=== PATIENT | male | born 1965 | race Caucasian/White ===

== ENCOUNTER 2019-07-29 15:33 | Emergency (ER) | payer OTHER ==
[~2019-07-29] VITALS: Ht 180.3 cm; Wt 102.1 kg
--- OUTSIDE RECORDS SUMMARY | ~2019-07-29 | XMS | Clinical Summary ---
Demographics + + + | Address | [address] | | | [place] [address] | + + + | Home Phone | | + + + | Preferred Language | Unknown | + + + | Marital Status | | + + + | Druze Affiliation | Unknown | + + + | Race | Unknown | + + + | Ethnic Group | Unknown | + + + Author + + + | Author | [facility] | | | and [place] | + + + | Organization | [facility] | | | and [place] | + + + | Address | Unknown | + + + | Phone | Unavailable | + + + Support + + +---------+ + | Name | Relationship | Address | Phone | + + +---------+ + | Nori Swift | ECON | Unknown | | + + +---------+ + Care Team Providers + +------+ + | Care Inbound Sales Representative Name | Role | Phone | + +------+ + | Sheri Woodard MD | PCP | | + +------+ + Allergies No Known Allergies Medications + + + +---------+------+------+-------+ | Medication | Sig | Dispensed | Refills | Star | End | Statu | | | | | | t | Date | s | | | | | | Date | | | + + + +---------+------+------+-------+ | levothyroxine | TAKE 1 TABLET BY | | 1 | 08/2 | | Activ | | (SYNTHROID) 175 mcg | MOUTH ONCE DAILY IN | | | 0/20 | | e | | tablet | THE MORNING ON AN | | | 19 | | | | | EMPTY STOMACH | | | | | | + + + +---------+------+------+-------+ | | Take 1 tablet by | 20 | 1 | 11/0 | | Activ | | amoxicillin-clavulan | mouth 2 times daily. | tablet | | 8/20 | | e | | ate (AUGMENTIN) | | | | 19 | | | | 875-125 mg per | | | | | | | | tablet | | | | | | | + + + +---------+------+------+-------+ | diclofenac | diclofenac 1 % | | 0 | | | Activ | | (VOLTAREN) 1% GEL | topical gel | | | | | e | + + + +---------+------+------+-------+ | meloxicam (MOBIC) | meloxicam 7.5 mg | | 0 | | | Activ | | 7.5 mg tablet | tablet | | | | | e | + + + +---------+------+------+-------+ | | oxycodone-acetaminop | | 0 | | | Activ | | oxyCODONE-acetaminop | hen 7.5 mg-325 mg | | | | | e | | hen (PERCOCET) | tablet take 1 to 2 | | | | | | | 7.5-325 mg per | tablets by mouth | | | | | | | tablet | every 4 hours if | | | | | | | | needed for pain | | | | | | + + + +---------+------+------+-------+ | ramipril (ALTACE) | ramipril 2.5 mg | | 0 | | | Activ | | 2.5 mg capsule | capsule | | | | | e | + + + +---------+------+------+-------+ | tadalafil (CIALIS) | Cialis 5 mg tablet | | 0 | | | Activ | | 5 MG tablet | TAKE ONE TABLET BY | | | | | e | | | MOUTH EVERY DAY FOR | | | | | | | | BPH AND ED | | | | | | + + + +---------+------+------+-------+ Active Problems + + + | Problem | Noted Date | + + + | Benign prostatic hyperplasia with urinary frequency | 05/23/2019 | + + + Encounters +--------+ + + + + | Date | Type | Specialty | Care Team | Description | +--------+ + + + + | 05/30/ | Telephone | Urology | Mercy Burns | Other | | 2020 | | | JOSEPH Parekh | | +--------+ + + + + | 05/22/ | Office | Urology | Kev Mckenna, | Benign prostatic | | 2019 | Visit | | DO | hyperplasia with | | | | | | urinary frequency | +--------+ + + + + from Last 3 Months Immunizations + + + + | Name | Administration Dates | Next Due | + + + + | HEP A/HEP B, 3 DOSE | 03/28/2015 | | | (ADULT) | | | + + + + | INFLUENZA 63 Y OR >, | 11/30/2013 | | | TRIVALENT HIGH-DOSE | | | + + + + | INFLUENZA PF | 12/16/2018 | | | QUAD(PED/ADOL/ADULT) | | | | ,PSKT or VIAL | | | + + + + | INFLUENZA PF | 11/30/2013, 02/08/2012 | | | TRIVALENT(PED/ADOL/A | | | | DULT), PSKT | | | + + + + | INFLUENZA QUADR | 12/07/2017 | | | W/PRES | | | | (PED/ADOL/ADULT) | | | | MULTIDOSE | | | + + + + | INFLUENZA TRIV | 12/25/2016, 12/25/2015, 01/23/2013, | | | W/PRES(PED/ADOL/ADUL | 12/02/2010 | | | T),MULTIDOSE | | | + + + + | INFLUENZA, | 01/23/2013 | | | UNSPECIFIED | | | | FORMULATION | | | + + + + | PNEUMOCOCCAL | 01/23/2013 | | | POLYSACCHARIDE | | | | 23-VALENT (PPSV23) | | | + + + + | PNEUMOCOCCAL, | 01/23/2013 | | | UNSPECIFIED | | | | FORMULATION | | | + + + + | TDAP, (ADOL/ADULT) | 02/15/2019 | | + + + + Social History + +-------+ +--------+------+ | Tobacco Use | Types | Packs/Day | Years | Date | | | | | Used | | + +-------+ +--------+------+ | Light Tobacco Smoker | | | | | + +-------+ +--------+------+ + +---+---+---+ | Smokeless Tobacco: | | | | | Never Used | | | | + +---+---+---+ + + + | Sex Assigned at | Date Recorded | | | | + + + | Not on file | | + + + + + + + | Job Start Date | Occupation | Industry | + + + + | Not on file | Not on file | Not on file | + + + + + + + + | Travel History | Travel Start | Travel End | + + + + + + | No recent travel history available. | + + Last Filed Vital Signs + + + + + | Vital Sign | Reading | Time Taken | Comments | + + + + + | Blood Pressure | 130/82 | 05/23/2019 8:26 AM | | | | | PDT | | + + + + + | Pulse | 60 | 05/23/2019 8:26 AM | | | | | PDT | | + + + + + | Temperature | 36.6 C (97.9 F) | 05/23/2019 8:26 AM | | | | | PDT | | + + + + + | Respiratory Rate | 18 | 01/13/2019 8:40 AM | | | | | PST | | + + + + + | Oxygen Saturation | 96% | 05/23/2019 8:26 AM | | | | | PDT | | + + + + + | Inhaled Oxygen | - | - | | | Concentration | | | | + + + + + | Weight | 105.7 kg (233 lb) | 05/23/2019 8:26 AM | | | | | PDT | | + + + + + | Height | - | - | | + + + + + | Body Mass Index | - | - | | + + + + + Plan of Treatment +--------+ + + + + | Date | Type | Specialty | Care Team | Description | +--------+ + + + + | 09/04/ | Procedure | Urology | Kev Mckenna, | | | 2019 | visit | | DO [address] | | | | | | [facility] [address] | | | | | | [phone] | | | | | | | | +--------+ + + + + + + + + + | Health Maintenance | Due Date | Last Done | Comments | + + + + + | Hepatitis C | | | | | Screening | 4 | | | + + + + + | Vaccine: | | 01/23/2013, 01/23/2013 | | | Pneumococcal 19-64 | 0 | | | | (1 of 1 - PPSV23) | | | | + + + + + | Colorectal Cancer | | | | | Screening | 4 | | | | (Colonoscopy) | | | | + + + + + | Vaccine: Zoster (1 | | | | | of 2) | 4 | | | + + + + + | Vaccine: | | 02/15/2019 | | | Dtap/Tdap/Td (2 - | 9 | | | | Td) | | | | + + + + + | Vaccine: Influenza | Completed | 12/16/2018, 12/07/2017, | | | | | 12/25/2016, Additional history | | | | | exists | | + + + + + Results Not on filefrom Last 3 Months Insurance +-------+--------+ +--------+ + +------+ | Payer | Benefi | Subscriber | Effect | Phone | Address | Type | | | t Plan | ID | pb | | | | | | / | | Dates | | | | | | Group | | | | | | +-------+--------+ +--------+ + +------+ | MODA | MODA | [id number] | 03/03/ | [phone] | [address] | PPO | | | COMMUN | | 2019-P | [phone] | | | | [place] | | resent | | [place], | | | | CARE | | | | [place] [address] | | | | NETWOR | | | | | | | | K | | | | | | +-------+--------+ +--------+ + +------+ | MODA | MODA | [id number] | | [phone] | [address] | PPO | | | [place] | | [phone] | [phone] | | | | [place] | | esent | | [place], | | | | [place] | | | | [place] [address] | | +-------+--------+ +--------+ + +------+ + +--------+ +--------+ + + | Guarantor Name | Accoun | Relation to | Date | Phone | Billing Address | | | t Type | Patient | of | | | | | | | | | | + +--------+ +--------+ + + | Dmitri Swift | Person | Self | [birth year] | [address] | | | al/Fam | | 1966 | [phone] | [place] [address] | | | raul | | | 2 (Home) | | + +--------+ +--------+ + + | Dmitri Swift | Person | Self | [birth year] | [address] | | | al/Fam | | 1966 | [phone] | [place] [address] | | | raul | | | 2 (Home) | | + +--------+ +--------+ + + Advance Directives + + + + + | Type | Date Recorded | Patient | Explanation | | | | Trim Crew Supervisor | | + + + + + | Power of | | | | | Director Of Field Sales | | | | + + + + + | Advance | | | | | Directive | | | | + + + + +"
--- OUTSIDE RECORDS SUMMARY | ~2019-07-29 | XMS | Encounter Summary ---
Demographics + + + | Address | [address] | | | [place] [address] | + + + | Home Phone | | + + + | Preferred Language | Unknown | + + + | Marital Status | | + + + | Restorationist Affiliation | Unknown | + + + | Race | Unknown | + + + | Ethnic Group | Unknown | + + + Author + + + | Author | [facility] | | | and [place] | + + + | Organization | [facility] | | | and [...] Team Providers + +------+ + | Care Active Directory Systems Administrator Name | Role | Phone | + +------+ + | No, Physician | PCP | Unavailable | + +------+ + Reason for Visit Diagnostic/Screening (Emergency) +--------+--------+ + + + + | Status | Reason | Specialty | Diagnoses / | Referred By | Referred To | | | | | Procedures | Contact | Contact | +--------+--------+ + + + + | Closed | | Radiology | Diagnoses | | [address] | | | | | Acute left | Nas | [address] [place] | | | | | flank pain | Bjorn | [place], | | | | | Microscopic | [place] | [place] [address] | | | | | hematuria | [address] | Phone: | | | | | Procedures | [address] | [phone] | | | | | CT Renal | [place] | Fax: | | | | | [place] | [address] | [phone] | | | | | Contrast | Phone: | | | | | | | [phone] | | | | | | | Fax: | | | | | | | [phone] | | +--------+--------+ + + + + Encounter Details +--------+ + + + + | Date | Type | Department | Care Team | Description | +--------+ + + + + | 01/13/ | Hospital [facility] | Nas, | | | 2019 | Encounter | [facility] [address] | Bjorn Cohen MD | | | | | [place], | [address] | | | | | [place] [address] | [place] | | | | | [phone] | [address] | | | | | | | | +--------+ + + + + Social History + [...] recent travel history available. | + + documented as of this encounter Medications at Time of Discharge + + + +---------+ + + | Medication | Sig | Dispensed | Refills | Start | End Date | | | | | | Date | | + + + +---------+ + + | | Take 1 tablet by | 20 | 1 | 01/14/20 | | | amoxicillin-clavulan | mouth 2 times daily. | tablet | | 19 | | | ate (AUGMENTIN) | | | | | | | 875-125 mg per | | | | | | | tablet | | | | | | + + + +---------+ + + | levothyroxine | TAKE 1 TABLET BY | | 1 | 10/26/19 | | | (SYNTHROID) 175 mcg | MOUTH ONCE DAILY IN | | | 19 | | | tablet | THE MORNING ON AN | | | | | | | EMPTY STOMACH | | | | | + + + +---------+ + + | tamsulosin | Take 1 capsule by | 15 | 0 | 01/14/20 | | | (FLOMAX) 0.4 mg CAPS | mouth Daily. | capsule | | 19 | 0 | + + + +---------+ + + | traMADol (ULTRAM) | Take 1 tablet by | 12 | 0 | 01/14/20 | | | 50 mg tablet | mouth every 8 hours | tablet | | 19 | 9 | | | as needed for up to | | | | | | | 3 days. | | | | | + + + +---------+ + + documented as of this encounter Plan of Treatment +--------+ + + + + | Date | Type | Specialty | Care Team | Description | +--------+ + + + + | 09/04/ | Procedure | Urology | Kev Mckenna, | | | 2019 | visit | | DO [address] | | | | | | [place] [address] | | | | | | [phone] | | | | | | | | +--------+ + + + + documented as of this encounter Procedures + +--------+ + + + | Procedure Name | Priori | Date/Time | Associated Diagnosis | Comments | | | ty | | | | + +--------+ + + + | CT RENAL [place] | STAT | 01/13/2019 | Acute left flank | Results for this | | CONTRAST | | 11:18 AM | pain Microscopic | procedure are in the | | | | PST | hematuria | results section. | + +--------+ + + + documented in this encounter Results CT Renal [place] Contrast (01/13/2019 11:18 AM PST) + + | Specimen | + + | | + + + + + | Impressions | Performed At | + + + | Uncomplicated descending colon diverticulitis. Left | [facility] | | nephrolithiasis without evidence of obstructive uropathy. | | | Posterior right hepatic lobe heterogeneously hypoechoic lesion. | | | Multiple additional smaller hypoechoic lesions are also noted. | | | Recommend routine follow-up liver protocol MRI versus CT for further | | | characterization. Hepatic steatosis. Notification: | | | Discussed with Dr. Lovell at 1147 on 01/13/2019. Dictated and | | | Signed by: Kev Hadley MD Electronically signed: 01/13/2019 | | | 11:50 AM | | + + + + + + | Narrative | Performed At | + + + | TECHNIQUE: Noncontrast axial CT imaging was obtained through the | [facility] | | abdomen and pelvis with coronal and sagittal reformats. CLINICAL | | | INFORMATION: Flank pain, kidney stone suspected COMPARISON: None | | | available. FINDINGS: LUNGS: Bases are clear. BONES: No | | | acute osseous abnormality. No osteoblastic or osteolytic lesion. | | | ABDOMEN/PELVIS: Abdominal wall: Small fat-containing right inguinal | | | hernia. Questionable small left inguinal hernia. No inguinal | | | lymphadenopathy. Liver: Scattered hypoattenuating subcentimeter | | | lesions in the left hepatic lobe measuring up to 9 mm, too small to | | | fully characterize. Posterior inferior left hepatic lobe | | | hypoattenuating 10 mm lesion with density most compatible with a | | | cyst. Diffuse low-attenuation of the liver. There is a mildly | | | heterogeneous hypoattenuating structure at the posterior right | | | hepatic lobe measuring 2.4 x 3.7 cm. Bile ducts: No intrahepatic | | | dilatation. Gallbladder: No calcified gallstones. Normal caliber | | | wall. Pancreas: No mass or ductal dilatation. Spleen: Unremarkable. | | | Adrenals: No nodule. Kidneys: Nonobstructing 4 mm left midpole | | | calyceal calculus. Punctate left upper pole calculus. No | | | hydronephrosis. No contour abnormality to suggest a mass lesion. | | | Ureters: No hydroureter or calculus. Urinary Bladder: No wall | | | thickening or calculus. Reproductive organs: No pelvic mass. | | | Bowel: Multiple left colon diverticula with circumferential colonic | | | wall thickening at the mid descending colon, demonstrating mild | | | surrounding fat stranding. No abnormal fluid collection or evidence | | | to suggest perforation. The involved segment measures approximately | | | 6.3 cm. Normal appendix. No evidence of obstruction. | | | Peritoneum/retroperitoneum: No lymphadenopathy, free air, or free | | | fluid. Vessels: Normal caliber of the abdominal aorta. | | + + + + + | Procedure Note | + + | Rakesh, Rad Results In - 01/13/2019 11:53 AM PST | | TECHNIQUE: Noncontrast axial CT imaging was obtained through the abdomen and | | pelvis with coronal and sagittal reformats. | | | | CLINICAL INFORMATION: Flank pain, kidney stone suspected | | | | COMPARISON: None available. | | | | FINDINGS: | | | | LUNGS: Bases are clear. | | | | BONES: No acute osseous abnormality. No osteoblastic or osteolytic lesion. | | | | ABDOMEN/PELVIS: | | Abdominal wall: Small fat-containing right inguinal hernia. Questionable small | | left inguinal hernia. No inguinal lymphadenopathy. | | | | Liver: Scattered hypoattenuating subcentimeter lesions in the left hepatic lobe | | measuring up to 9 mm, too small to fully characterize. Posterior inferior left | | hepatic lobe hypoattenuating 10 mm lesion with density most compatible with a | | cyst. Diffuse low-attenuation of the liver. There is a mildly heterogeneous | | hypoattenuating structure at the posterior right hepatic lobe measuring 2.4 x | | 3.7 cm. | | Bile ducts: No intrahepatic dilatation. | | Gallbladder: No calcified gallstones. Normal caliber wall. | | Pancreas: No mass or ductal dilatation. | | Spleen: Unremarkable. | | | | Adrenals: No nodule. | | Kidneys: Nonobstructing 4 mm left midpole calyceal calculus. Punctate left upper | | pole calculus. No hydronephrosis. No contour abnormality to suggest a mass | | lesion. | | Ureters: No hydroureter or calculus. | | Urinary Bladder: No wall thickening or calculus. | | Reproductive organs: No pelvic mass. | | | | Bowel: Multiple left colon diverticula with circumferential colonic wall | | thickening at the mid descending colon, demonstrating mild surrounding fat | | stranding. No abnormal fluid collection or evidence to suggest perforation. The | | involved segment measures approximately 6.3 cm. Normal appendix. No evidence of | | obstruction. | | Peritoneum/retroperitoneum: No lymphadenopathy, free air, or free fluid. | | Vessels: Normal caliber of the abdominal aorta. | | | | | | IMPRESSION: | | | | Uncomplicated descending colon diverticulitis. | | | | Left nephrolithiasis without evidence of obstructive uropathy. | | | | Posterior right hepatic lobe heterogeneously hypoechoic lesion. Multiple | | additional smaller hypoechoic lesions are also noted. Recommend routine | | follow-up liver protocol MRI versus CT for further characterization. | | | | Hepatic steatosis. | | | | | | Notification: Discussed with Dr. Lovell at 1147 on 01/13/2019. | | | | Dictated and Signed by: Kev Hadley MD | | Electronically signed: 01/13/2019 11:50 AM | + + + +---------+ + + | Performing | Address | City[facility] | Phone Number | | Organization | | | | + +---------+ + + | [facility] | | | | + +---------+ + + documented in this encounter Visit Diagnoses Not on filedocumented in this encounter"
--- OUTSIDE RECORDS SUMMARY | ~2019-07-29 | XMS | Encounter Summary ---
Demographics + + + | Address | [address] | | | [place] [address] | + + + | Home Phone | | + + + | Preferred Language | Unknown | + + + | Marital Status | | + + + | Hoahaoism Affiliation | Unknown | + + + | Race | Unknown | + + + | Ethnic Group | Unknown | + + + Author + + + | Author | [facility] | | | and [place] | + + + | Organization | [facility] | | | and [place] | [...] Team Providers + +------+ + | Care Foreign Legal Consultant Name | Role | Phone | + +------+ + | Sheri Woodard MD | PCP | | + +------+ + Reason for Visit + + + | Reason | Comments | + + + | Establish Care | | + + + Evaluate & Treat (Routine) + +--------+ + + + + | Status | Reason | Specialty | Diagnoses / | Referred By | Referred To | | | | | Procedures | Contact | Contact | + +--------+ + + + + | Authorized | | Urology | Diagnoses | Yamilet, | [facility] | | | | | Calculus of | Sheri Matos, | [address] | | | | | kidney | MD [address] | | | | | Benign | [address] | [place], [place] | | | | | prostatic | [place], | [address] | | | | | hyperplasia | [place] | Phone: | | | | | with lower | [address] | [phone] | | | | | urinary | Phone: | Fax: | | | | | tract | [phone] | [phone] | | | | | symptoms | Fax: | | | | | | | [phone] | | + +--------+ + + + + Encounter Details +--------+---------+ + + + | Date | Type | Department | Care Team | Description | +--------+---------+ + + + | 05/22/ | Office | [facility] | Kev Mckenna, | Benign prostatic | | 2020 | Visit | UROLOGY [address] | DO [address] | hyperplasia with | | | | [address] | [place] [address] | urinary frequency | | | | [place], [place] | [phone] | | | | | [address] | | | | | | [phone] | | | +--------+---------+ + + + Social History + +-------+ [...] + + documented as of this encounter Last Filed Vital Signs + + + [...] + + + | Respiratory Rate | - | - | | + [...] | | + + + + + documented in this encounter Patient Instructions Patient Instructions Rox Oconnor, Cmm Technician - 05/23/2019 8:30 AM PDTFormatt ing of this note might be different from the original. 1. Bladder Irritants - In addition, plan to work through a list of common bladder irritants Will Avoiding these Help? #1. Pick one food at a time. #2. Cut it out of your Diet completely. #3 Give it at least 10-14 days to have an effects. #4.If not better, try another. #5. If is better, than you choose whether the improvement out weigh how much you miss the f ood.Will Avoiding these Help? 2. Fiber buds (found in the cereal aisle of the grocery store) - In the meantime, plan to s tart on fiber supplements, such as All Bran Fiber bud. 3. Cystoscopy Cystoscopy is a procedure that lets your doctor look directly inside your urethra and bladd er. It can be used to: Help diagnose a problem with your urethra, bladder, or kidneys. Take a sample (biopsy) of bladder or urethral tissue. Treat certain problems (such as removing kidney stones). Place a stent to bypass an obstruction. Take special X-rays of the kidneys. Based on the findings, your doctor may recommend other tests or treatments. What is a cystoscope? A cystoscope is a telescope-like instrument that contains lenses and fiberoptics (small gla ss wires that make bright light). The cystoscope may be straight and rigid, or flexible to b end around curves in the urethra. The doctor may look directly into the cystoscope, or proje ct the image onto a monitor. Getting ready Ask your doctor if you should stop taking any medicines before the procedure. Ask whether you should avoid eating or drinking anything after midnight before the proce dure. Follow any other instructions your doctor gives you. Tell yourdoctor before the exam if you: Take any medicines, such as aspirin or blood thinners Have allergies to any medicines Are The procedure Cystoscopy is done in the doctor s office, surgery center, or hospital. The doctor and a nurse are present during the procedure. It takes only a few minutes, longer if a biopsy, X-r ay, or treatment needs to be done. During the procedure: You lie on an exam table on your back, knees bent and legs apart. You are covered with a drape. Your urethra and the area around it are washed. Anesthetic jelly may be applied to numb the urethra. Other pain medicine is usually not needed. In some cases, you may be offered a mild sedative to help you relax. If a more extensive procedure is to be done, such as a biop sy or kidney stone removal, general anesthesia may be needed. The cystoscope is inserted. A sterile fluid is put into the bladder to expand it. You ma y feel pressure from this fluid. When the procedure is done, the cystoscope is removed. After the procedure If you had a sedative, general anesthesia, or spinal anesthesia, you must have someone driv e you home. Once you re home: Drink plenty of fluids. You may have burning or light bleeding when you urinate this is normal. Medicines may be prescribed to ease any discomfort or prevent infection. Take these as d irected. Call your doctor if you have heavy bleeding or blood clots, burning that lasts more than a day, a fever [id number] (38 C), or trouble urinating. Date Last Reviewed: 03/08/201619996953-1054 [employer]. [address] [place] [address]. [address] [facility] ts reserved. This information is not intended as a substitute for professional medical care. Always follow your healthcare professional's instructions. documented in this encounter Progress Notes Kev Mckenna DO - 05/23/2019 8:30 AM PDTFormatting of this note might be different fr om the original. [facility] Urology Primary Care Provider: Sheri Woodard MD History Obtained From: the patient Primary Care Physician: Sheri Woodard MD CHIEF COMPLAINT: Establishing Care for BPH, overactive bladder Chief Complaint Patient presents with Establish Care HISTORY OF PRESENT ILLNESS INTERVAL: 05/23/2019 Dr Kev Mckenna DO The patient is a 53 y.o. male with significant past medical history below who presents for LUTS. He notes urgency, frequency, variably weak stream, intermittency, terminal dribble, double voiding. He denies GH, UTI, AUR. He was treated for prostatitis but stopped the therapy on his own. He had a stone years ago. He tried Flomax but did not like the side effects and retrograde ejaculation. He was told his prostate was enlarged 12 years ago. He denies cons tipation. He occasionally smokes socially. He denies family Hx of malignancy. History: No past medical history on file. No past surgical history on file. No family history on file. Social History Socioeconomic History Marital status: Spouse name: Not on file Number of children: Not on file Years of education: Not on file Highest education level: Not on file Tobacco Use Smoking status: Light Tobacco Smoker Smokeless tobacco: Never Used Allergies: No Known Allergies Medications: Current Outpatient Medications Medication Sig Dispense Refill amoxicillin-clavulanate (AUGMENTIN) 875-125 mg per tablet Take 1 tablet by mouth 2 time s daily. 20 tablet 1 diclofenac (VOLTAREN) 1% GEL diclofenac 1 % topical gel levothyroxine (SYNTHROID) 175 mcg tablet TAKE 1 TABLET BY MOUTH ONCE DAILY IN [facility] ON AN EMPTY STOMACH 1 meloxicam (MOBIC) 7.5 mg tablet meloxicam 7.5 mg tablet oxyCODONE-acetaminophen (PERCOCET) 7.5-325 mg per tablet oxycodone-acetaminophen 7.5 mg -325 mg tablet take 1 to 2 tablets by mouth every 4 hours if needed for pain ramipril (ALTACE) 2.5 mg capsule ramipril 2.5 mg capsule tadalafil (CIALIS) 5 MG tablet Cialis 5 mg tablet TAKE ONE TABLET BY MOUTH EVERY DAY FOR BPH AND ED No current facility-administered medications for this visit. REVIEW OF SYSTEMS Review of Systems Constitutional: Negative for chills, fever and weight loss. Eyes: Negative for blurred vision. Respiratory: Negative for shortness of breath. Cardiovascular: Negative for chest pain. Gastrointestinal: Negative for abdominal pain, nausea and vomiting. Skin: Negative for rash. Neurological: Negative for dizziness and headaches. Endo/Heme/Allergies: Does not bruise/bleed easily. Psychiatric/Behavioral: Negative for depression (). PHYSICAL EXAM Vital Signs: BP 130/82 | Pulse 60 | Temp 36.6 C (97.9 F) (Oral) | Wt 105.7 kg (233 lb) | SpO2 96 % Physical Exam Constitutional: Appearance: He is well-developed. HENT: Head: Atraumatic. Eyes: Conjunctiva/sclera: Conjunctivae normal. Pupils: Pupils are equal, round, and reactive to light. Neck: Musculoskeletal: Normal range of motion. Cardiovascular: Rate and Rhythm: Normal rate. Pulmonary: Effort: Pulmonary effort is normal. Abdominal: Palpations: Abdomen is soft. Genitourinary: Comments: No CVA tenderness to palpation Musculoskeletal: Normal range of motion. Skin: General: Skin is warm and dry. Neurological: Mental Status: He is alert and oriented to person, place, and time. Psychiatric: Behavior: Behavior normal. DATA PSA: No results found for: PSA PVR: 54 ml On 05/23/2019 TESTOSTERONE: No results found for: TESTOSTERONE CBC: Lab Results Component Value Date WBC 13.6 (H) 01/13/2019 RBC 4.81 01/13/2019 HGB 15.2 01/13/2019 HCT 45.1 01/13/2019 MCV 93.8 01/13/2019 MCH 31.6 01/13/2019 MCHC 33.7 01/13/2019 PLT 229 01/13/2019 MPV 10.8 01/13/2019 CMP: Lab Results Component Value Date NA 137 01/13/2019 K 4.1 01/13/2019 CL 102 01/13/2019 CO2 27 01/13/2019 ANIONGAP 8 01/13/2019 BUN 12 01/13/2019 BILITOT 1.0 01/13/2019 AST 12 (L) 01/13/2019 ALT 40 01/13/2019 BMP: Lab Results Component Value Date NA 137 01/13/2019 K 4.1 01/13/2019 CL 102 01/13/2019 CO2 27 01/13/2019 ANIONGAP 8 01/13/2019 BUN 12 01/13/2019 BUN/Creatinine: Lab Results Component Value Date BUN 12 01/13/2019 LDH: No results found for: LDH U/A: Lab Results Component Value Date CLARITYU Clear 01/13/2019 LEUKOCYTESUR Negative 01/13/2019 UROBILINOGEN 0.2 01/13/2019 HgBA1c: No results found for: LABGLYC AUA Symptom Score: NA QOL: NA TETO: NA IMAGING MRI Abdomen w wo Contrast03/10/2019 [facility] Result Impression IMPRESSION: 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 Scattered small cysts in the left hepatic lobe. Subcentimeter bilateral renal cysts. Dictated by: Len Staley M.D. on 03/10/2019 1:17 PM Result Narrative MRI ABDOMEN W WO CONTRAST 03/10/2019 10:27 AM INDICATION: K76.9: Liver disease, unspecified; K76.0: Fatty (change of) liver, not elsewhere classified; R16.0: Hepatomegaly, not elsewhere classified. TECHNIQUE: Multiplanar, multisequence MR imaging of the abdomen was performed both prior to and after the uneventful administration of 10 mL Gadavist IV contrast. COMPARISON: Outside stone protocol CT report 01/13/2019. FINDINGS: LIVER: Moderate diffuse fatty infiltration of the liver. Approximately 2.7 x 4.6 x 3.6 cm heterogeneously T2 hyperintense, diffusion hyperintense mass in segment VII (series 1201, image 20). This mass demonstrates progressive centripetal enhancement post contrast administration with delayed fill-in and is compatible with a benign cavernous hemangioma. Other scattered smaller nonenhancing T2 hyperintense masses in the left lobe, compatible with benign hepatic cysts, the largest measuring about 1.8 cm. Gallbladder is normal. No bile duct dilatation. BILIARY: Normal. PANCREAS: Normal. SPLEEN: Normal. ADRENALS: Normal. KIDNEYS: No hydronephrosis. Subcentimeter cortical and parapelvic cysts bilaterally. RETROPERITONEUM: Normal. MUSCULOSKELETAL: Degenerative and hypertrophic change in the spine. OTHER: Negative. Other Result Information Rakesh, Rad Results In - 03/10/2019 2:00 PM PST MRI ABDOMEN W WO CONTRAST 03/10/2019 10:27 AM INDICATION: K76.9: Liver disease, unspecified; K76.0: Fatty (change of) liver, not elsewhere classified; R16.0: Hepatomegaly, not elsewhere classified. TECHNIQUE: Multiplanar, multisequence MR imaging of the abdomen was performed both prior to and after the uneventful administration of 10 mL Gadavist IV contrast. COMPARISON: Outside stone protocol CT report 01/13/2019. FINDINGS: LIVER: Moderate diffuse fatty infiltration of the liver. Approximately 2.7 x 4.6 x 3.6 cm heterogeneously T2 hyperintense, diffusion hyperintense mass in segment VII (series 1201, image 20). This mass demonstrates progressive centripetal enhancement post contrast administration with delayed fill-in and is compatible with a benign cavernous hemangioma. Other scattered smaller nonenhancing T2 hyperintense masses in the left lobe, compatible with benign hepatic cysts, the largest measuring about 1.8 cm. Gallbladder is normal. No bile duct dilatation. BILIARY: Normal. PANCREAS: Normal. SPLEEN: Normal. ADRENALS: Normal. KIDNEYS: No hydronephrosis. Subcentimeter cortical and parapelvic cysts bilaterally. RETROPERITONEUM: Normal. MUSCULOSKELETAL: Degenerative and hypertrophic change in the spine. OTHER: Negative. 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 Scattered small cysts in the left hepatic lobe. Subcentimeter bilateral renal cysts. Dictated by: Len Staley M.D. on 03/10/2019 1:[address] Renal Stone Wo Contrast 01/13/2019 TECHNIQUE: Noncontrast axial CT imaging was obtained through the abdomen and pelvis with coronal and sagittal reformats. CLINICAL INFORMATION: Flank pain, kidney stone suspected COMPARISON: None available. FINDINGS: LUNGS: Bases are clear. BONES: No acute osseous abnormality. No osteoblastic or osteolytic lesion. ABDOMEN/PELVIS: Abdominal wall: Small fat-containing right inguinal hernia. Questionable small left inguinal hernia. No inguinal lymphadenopathy. Liver: Scattered hypoattenuating subcentimeter lesions in the left hepatic lobe measuring up to 9 mm, too small to fully characterize. Posterior inferior left hepatic lobe hypoattenuating 10 mm lesion with density most compatible with a cyst. Diffuse low-attenuation of the liver. There is a mildly heterogeneous hypoattenuating structure at the posterior right hepatic lobe measuring 2.4 x 3.7 cm. Bile ducts: No intrahepatic dilatation. Gallbladder: No calcified gallstones. Normal caliber wall. Pancreas: No mass or ductal dilatation. Spleen: Unremarkable. Adrenals: No nodule. Kidneys: Nonobstructing 4 mm left midpole calyceal calculus. Punctate left upper pole calculus. No hydronephrosis. No contour abnormality to suggest a mass lesion. Ureters: No hydroureter or calculus. Urinary Bladder: No wall thickening or calculus. Reproductive organs: No pelvic mass. Bowel: Multiple left colon diverticula with circumferential colonic wall thickening at the mid descending colon, demonstrating mild surrounding fat stranding. No abnormal fluid collection or evidence to suggest perforation. The involved segment measures approximately 6.3 cm. Normal appendix. No evidence of obstruction. Peritoneum/retroperitoneum: No lymphadenopathy, free air, or free fluid. Vessels: Normal caliber of the abdominal aorta. IMPRESSION: Uncomplicated descending colon diverticulitis. Left nephrolithiasis without evidence of obstructive uropathy. Posterior right hepatic lobe heterogeneously hypoechoic lesion. Multiple additional smaller hypoechoic lesions are also noted. Recommend routine follow-up liver protocol MRI versus CT for further characterization. Hepatic steatosis. Notification: Discussed with Dr. Lovell at 1147 on 01/13/2019. Dictated and Signed by: Kev Hadley MD Electronically signed: 01/13/2019 11:50 AM ASSESSMENT & PLAN 1. Benign prostatic hyperplasia with urinary frequency The patient appears to have significant lower tract symptoms refractory to previous therap ies. Given his refractory obstructive symptoms, he is a candidate for various procedural and jenelle gical options. We discussed various procedural options as well from TUMT, PVP, TURP, HoLEP, etc. We discu ssed the risks of bleeding, infection, anesthesia (cardiac events, arrhythmia, ), etc. We also discussed the potential role for further diagnostics with diagnostic endoscopy and urodynamic studies. After long discussion, he has elected for further workup with cystoscopy followed by uroflo w/PVR. He will also avoid bladder irritants. Kev Mckenna DO 05/23/2019 documented in this encounter Plan of Treatment +--------+ + + + + | Date | Type | Specialty | Care Team | Description | +--------+ + + + + | 09/04/ | Procedure | Urology | Kev Mckenna, | | | 2020 | visit | | DO [facility] | | | | | | [place] [address] | | | | | | [phone] | | | | | | | | +--------+ + + + + documented as of this encounter Visit Diagnoses + + | Diagnosis | + + | Benign prostatic hyperplasia with urinary frequency | + + documented in this encounter"
--- OUTSIDE RECORDS SUMMARY | ~2019-07-29 | XMS | Encounter Summary ---
Demographics + + + | Address | [address] | | | [place] [address] | + + + | Home Phone | | + + + | Preferred Language | Unknown | + + + | Marital Status | | + + + | Pentecostal Affiliation | Unknown | + + + | Race | Unknown | + + + | Ethnic Group | Unknown | + + + Author + + + | Author | Located Within [facility] | | | and [place] | + + + | Organization | Located Within [facility] | | | and [...] Team Providers + +------+ + | Care Supervisor [place] Name | Role | Phone | + +------+ + | No, Physician | PCP | Unavailable | + +------+ + Reason for Referral Diagnostic/Screening (Emergency) +--------+--------+ + + + + | Status | Reason | Specialty | Diagnoses / | Referred By | Referred To | | | | | Procedures | Contact | Contact | +--------+--------+ + + + + | Closed | | Radiology | Diagnoses | | [address] | | | | | Acute left | Nas | [place] | | | | | flank pain | Bjorn | [place], | | | | | Microscopic | [place] | [place] [address] | | | | | hematuria | [address] | Phone: | | | | | Procedures | [address] | [phone] | | | | | CT Renal | [place] | Fax: | | | | | [place] | [address] | [phone] | | | | | Contrast | Phone: | | | | | | | [phone] | | | | | | | Fax: | | | | | | | [phone] | | +--------+--------+ + + + + Reason for Visit + + + | Reason | Comments | + + + | Abdominal Pain | Exam 5 - Pain to left upper abd. below ribcage - Pain radiates to | | | back - increases with movement/deep breaths x 1 day. No known | | | injury. | + + + Encounter Details +--------+---------+ + + + | Date | Type | Department | Care Team | Description | +--------+---------+ + + + | 01/13/ | Office | [facility] | Nas, | Acute left flank | | 2019 | Visit | CARE [address] | Bjorn Cohen MD | pain (Primary Dx); | | | | [place], [place] | [address] | Microscopic | | | | [phone] | [place], [place] | hematuria; | | | | [phone] | [phone] | Diverticulitis large | | | | | | intestine w/o | | | | | | perforation or | | | | | | abscess w/bleeding; | | | | | | Liver lesion | +--------+---------+ + + + Social History [...] + + + | Blood Pressure | 137/80 | 01/13/2019 8:40 AM | | | | | PST | | + + + + + | Pulse | 92 | 01/13/2019 8:40 AM | | | | | PST | | + + + + + | Temperature | 37.1 C (98.8 F) | 01/13/2019 8:40 AM | | | | | PST | | + + + + + | Respiratory Rate | 18 | 01/13/2019 8:40 AM | | | | | PST | | + + + + + | Oxygen Saturation | 94% | 01/13/2019 8:40 AM | | | | | PST | | + + + + + | Inhaled Oxygen | - | - | | | Concentration | | | | + + + + + | Weight | - | - | | + + + + + | Height | - | - | | + + + + + | Body Mass Index | - | - | | + + + + + documented in this encounter Patient Instructions Patient Instructions Bjorn Lovell MD - 01/13/2019 8:30 AM PST Discharge Instructions for Diverticulitis You have been diagnosed with diverticulitis. This is a conditionin whichsmall pouches f orm in your colon (large intestine) and become inflamed or infected. Follow the guidelines opal hernandez for home care. As you recover Tips for recovery include: Eat a low-fiber diet. Your healthcare provider mayadvise a liquid diet.This gives yo ur bowel a chance to rest so that it can recover. Foods to include: flake cereal, mashed potatoes, pancakes, waffles, pasta, white bread, rice, applesauce, bananas, eggs, fish, poultry, tofu, and well-cooked vegetables Take your medicinesas directed. Do not stop taking the medicines, even if you feel bet ter. Monitor your temperature and report any rising temperature to your healthcare provider. Take antibiotics exactly as directed. Do not miss any and keep taking them even if you f eel better. Drink 6 to 8 glasses of water every day, unless directed otherwise. Use a heating pad or hot water bottle to reduce abdominal cramping or pain. Preventing diverticulitis in the future Tips for prevention include: Eat a high-fiber diet. Fiber adds bulk to the stool so that it passes through the large intestine more easily. Keep drinking 6 to 8 glasses of water every day, unless directed otherwise. Begin an exercise program. Ask your healthcare provider how to get started. You can bene fit from simple activities such as walking or gardening. Treat diarrhea with a bland diet. Start with liquids only,then slowly add fiber over t scotty. Watch for changes in your bowel movements (constipation to diarrhea). Avoid constipation with fiber and add a stool softener if needed. Get plenty of rest and sleep. Follow-up care Make a follow-up appointment as directed by our staff. When to call your healthcare provider Call your healthcare provider immediately if you have any of the following: Fever of 100.4F (38.0C) or higher, or as directed by your healthcare provider Chills Severe cramps inthe belly, most commonly the lower left side Tenderness inthe belly, most commonly the lower left side Nausea and vomiting Bleeding from your rectum Date Last Reviewed: 09/06/[id number] [employer]. [address] [place] [address]. All righ ts reserved. This information is not intended as a substitute for professional medical care. Always follow your healthcare professional's instructions. You will need to get a mri or special CT of the liver to followup a spot we found today. Yo ur new pcp should be able to help with this. documented in this encounter Progress Notes Deb Coto, Piano Regulator - 01/13/2019 8:30 AM PSTAfter verifying pt's name and performed venipuncture per Dr. Lovell's orders. Pt tolerated well with no immediat e concerns 21G/1Stick/RAC/2Tubes-Lavender and Light Green. Fernie Bernardo Bjorn Fernandez MD - 01/13/2019 8:30 AM PSTFormatting of this note might be differe nt from the original. Subjective: Chief Complaint: Abdominal Pain (Exam 5 - Pain to left upper abd. below ribcage - Pain radi ates to back - increases with movement/deep breaths x 1 day. No known injury. ) Dmitri is a 53 y.o. male who comes in complaining of left flank pain. HPI this 53-year-old woke yesterday with some left flank pain.'s been sore to the touch. I ts gotten worse in the interval. He worked last night and noticed that there was increasing pain with deep breathing and somewhat so with movement of the torso. He has not had fever at all no rigors. There is no runny nose sore throat cough shortness of breath sputum prod uction. He did get some chills last night. He has no history of shingles. He has had kidn ey stone in the past and this does not feel like that one did. There is no pain into the gr oin or the scrotum. He has not had unusual frequency urgency or any dysuria. He does have a swollen/enlarged prostate and this is giving him some more trouble over the last month or so but nothing acutely changing over the last day or so. He does not have change in the bow el appetite nausea vomiting diarrhea constipation and there is no blood or mucus in the stoo l. Has had a more foul odor than normal. Patient's medications, allergies, past medical, surgical, social and family histories were reviewed and updated as appropriate. ROS He reports about 18 units of alcohol per week or more. Typically drinks 3-6 drinks at a ti me 3 or 4 nights a week. He works as a client account assistant. He smokes socially Objective: BP 137/80 | Pulse 92 | Temp 37.1 C (98.8 F) (Temporal) | Resp 18 | SpO2 94% Physical Exam This is an obese male in no apparent distress at rest. Vital signs are normal. Lungs clear. Back mild left CVA tenderness. Abdomen obese soft and mildly tender in the l eft upper quadrant. There is no splenomegaly no mass-effect no rebound or guarding. Bowel tones are normally active throughout. Skin no evidence of shingles or redness or rash. Recent Results (from the past 24 hour(s)) POCT Urinalysis Result Value Ref Range Color, UA, POC Dark Yellow (A) Yellow, Light Yellow Clarity, UA, POC Clear Glucose, UA, POC Negative Negative Bilirubin, UA, POC Negative Negative Ketones, UA, POC Negative Negative, 100 mg/dL Specific Bruce, UA, POC 1.020 1.001 - 1.030 Blood, UA, POC Trace Intact (A) Negative pH, UA, POC 7.0 5.0, 6.0, 7.0, 8.0, 5.5, 6.5, 7.5 Protein, UA, POC Trace (A) Negative Urobilinogen, UA, POC 0.2 0.2, Negative, Normal, < 0.2 mg/dL, 1 mg/dL, < 0.2 E.U./dl, 1.0 E.U./dL, 0.2 mg/dL Nitrite, UA, POC Negative Negative Leukocyte Esterase, UA, POC Negative Negative Reducing Substances, Urine Ictotest Remark Urinalysis, Microscopic Only, with Culture if Indicated Result Value Ref Range WBC UA 0-2 0 - 2 /HPF RBC UA 2-5 (A) 0 - 2 /HPF SQUAMOUS EPITHELIAL UA 0-2 0 - 2 /LPF BACTERIA UA Negative Negative /HPF URINE COMMENT Urine Culture Not Indicated Lipase Result Value Ref Range Lipase 102 73 - 393 U/L Comprehensive Metabolic Panel Result Value Ref Range Na 137 136 - 145 mmol/L K 4.1 3.5 - 5.1 mmol/L Cl 102 98 - 107 mmol/L CO2 27 21 - 32 mmol/L Anion Gap 8 2 - 16 mmol/L Glucose 103 74 - 106 mg/dL BUN 12 7 - 18 mg/dL Creatinine 0.95 0.70 - 1.30 mg/dL eGFR if not >60 >=60 mL/min/1.73m2 Calcium 9.2 8.5 - 10.1 mg/dL Albumin 4.0 3.4 - 5.0 g/dL Bilirubin Total 1.0 0.2 - 1.0 mg/dL Total Protein 7.9 6.4 - 8.2 g/dL AST 12 (L) 15 - 37 U/L ALT 40 16 - 63 U/L Alkaline Phosphatase 65 46 - 116 U/L Globulin 3.9 (H) 2.1 - 3.8 g/dL Albumin/Globulin Ratio 1.0 0.8 - 2.0 BUN/Creatinine Ratio 12.6 CBC with Differential Result Value Ref Range WBC 13.6 (H) 4.0 - 11.0 K/uL RBC 4.81 4.30 - 5.70 M/uL Hemoglobin 15.2 13.5 - 18.0 g/dL Hematocrit 45.1 40.0 - 51.0 % MCV 93.8 83.0 - 101.0 fL MCH 31.6 28.0 - 35.0 pg MCHC 33.7 32.0 - 36.0 g/dL RDW-CV 12.7 <15.0 % RDW-SD 44.3 35.1 - 46.3 fL Platelet Count 229 140 - 440 K/uL MPV 10.8 6.5 - 12.4 fL % Neutrophils 75.7 45.0 - 82.0 % % Lymphocytes 14.7 (L) 20.0 - 45.0 % % Monocytes 9.0 4.0 - 12.0 % % Eosinophils 0.4 0.0 - 5.0 % % Basophils 0.1 0.0 - 1.0 % % Immature Granulocytes 0.1 0.0 - 0.4 % Absolute Neutrophils 10.31 (H) 1.80 - 8.50 K/uL Absolute Lymphocytes 2.00 0.60 - 3.20 K/uL Absolute Monocytes 1.23 (H) 0.00 - 1.00 K/uL Absolute Eosinophils 0.06 0.00 - 0.40 K/uL Absolute Basophils 0.02 0.00 - 0.10 K/uL Absolute Immature Granulocytes 0.02 0.00 - 0.03 K/uL C-Reactive Protein Result Value Ref Range C-Reactive Protein 129.2 (H) 0.0 - 9.0 mg/L CT abdomen pelvis shows 2 tiny nonobstructive left kidney stones that are likely not the ca use of his pain. He has mild diverticulitis without abscess or perforation. He also has se veral liver lesions which are on able to be characterized by current study. Follow-up is r ecommended by the radiologist to call me to report. Assessment and Plans: 1. Acute left flank pain Likely due to #3. 2. Microscopic hematuria As patient does have some small stones he is encouraged to strain urine and is given a smal l amount of tramadol and Flomax in case this does move down the ureter - CT Renal Stone Wo Contrast 3. Diverticulitis large intestine w/o perforation or abscess w/bleeding Patient is intolerant of Cipro with a lot of tendon tenderness when he is previously I will therefore use Augmentin. He will do a smooth bland diet and avoid either extreme of consti pation or diarrhea over the next 2 weeks. He will follow-up with his new PCP with whom he h as an appointment on February 15. If GI symptoms worsen he gets a fever etc. he will need t o return for recheck. He understands agrees. 4. Liver lesion This is an unexpected finding on the current CT. He has one lesion that is particularly la rge and MRI versus multiple phase CT scan is recommended. I have talked about this and he u nderstands and agrees to proceed. I have put a reminder in my chart on the when he is to see his new PCP and asked him to get his records sent over ahead of time of that visit so that she can pursue prompt imaging. This note was dictated using [employer] voice recognition software. Occasional wrong- word or s ound-alike substitutions may have occurred due to the inherent limitations of voice recognit ion software. Please read the chart carefully and recognize, using context, where these subs titutions have occurred. documented in this encounter Plan of Treatment +--------+ + + + + | Date | Type | Specialty | Care Team | Description | +--------+ + + + + | 09/04/ | Procedure | Urology | Kev Mckenna, | | | 2019 | visit | | DO [address] [facility] | | | | | | [place] [address] | | | | | | [phone] | | | | | | | [...] section. | + +--------+ + + + | CBC WITH | STAT | 01/13/2019 | Acute left flank | Results for this | | DIFFERENTIAL | | 9:35 AM | pain | procedure are in the | | | | PST | | results section. | + +--------+ + + + | C-REACTIVE PROTEIN | STAT | 01/13/2019 | Acute left flank | Results for this | | | | 9:35 AM | pain | procedure are in the | | | | PST | | results section. | + +--------+ + + + | LIPASE | STAT | 01/13/2019 | Acute left flank | Results for this | | | | 9:35 AM | pain | procedure are in the | | | | PST | | results section. | + +--------+ + + + | COMPREHENSIVE | STAT | 01/13/2019 | Acute left flank | Results for this | | METABOLIC PANEL | | 9:35 AM | pain | procedure are in the | | | | PST | | results section. | + +--------+ + + + | URINALYSIS, | STAT | 01/13/2019 | Acute left flank | Results for this | | MICROSCOPIC ONLY, | | 9:31 AM | pain | procedure are in the | | WITH CULTURE IF | | PST | | results section. | | INDICATED | | | | | + +--------+ + + + | POCT URINALYSIS, | Routin | 01/13/2019 | Acute left flank | Results for this | | AUTO WITH CONF | e | 9:30 AM | pain | procedure are in the | | | | PST | | results section. | + +--------+ + [...] + + | Performing | Address | City/State/Zipcode | Phone Number | | Organization | | | | + +---------+ + + | [facility] | | | | + +---------+ + + C-Reactive Protein (01/13/2019 9:35 AM PST) + + + + + + | Component | Value | Ref Range | Performed | Pathologist | | | | | At | Signature | + + + + + + | C-Reactive | 129.2 (H) | 0.0 - 9.0 mg/L | [facility] | | | Protein | | | [facility] | | | [facility] | | | | [facility] | | + + + + + + + + | Specimen | + + | Blood | + + + + + + + | Performing | Address | City/State/Zipcode | Phone Number | | Organization | | | | + + + + + | [facility] | [address] | [place] | [phone] | | [facility] | | [address] | | | [facility] | | | | + + + + + CBC with Differential (01/13/2019 9:35 AM PST) + + + + + + | Component | Value | Ref Range | Performed | Pathologist | | | | | At | Signature | + + + + + + | WBC | 13.6 (H) | 4.0 - 11.0 K/uL | [facility] | | | | | | [facility] | | [facility] | | + + + + + + | RBC | 4.81 | 4.30 - 5.70 | [facility] | | | | | M/uL | [facility] | [facility] | | | | [facility] | | | [facility] | | + + + + + + | Hemoglobin | 15.2 | 13.5 - 18.0 | [facility] | | | | | g/dL | [facility] | | [facility] | | | | | | [facility] | | | | | [facility] | | + + + + + + | Hematocrit | 45.1 | 40.0 - 51.0 % | [facility] | | | | | | [facility] | | | | [facility] | | + + + + + + | MCV | 93.8 | 83.0 - 101.0 fL | [facility] | | | | | | [facility] | | | [facility] | | + + + + + + | MCH | 31.6 | 28.0 - 35.0 pg | [facility] | | | | | | [facility] | | | | [facility] | | + + + + + + | MCHC | 33.7 | 32.0 - 36.0 | [facility] | | | | | g/dL | [facility] | | [facility] | [facility] | | [facility] | | + + + + + + | RDW-CV | 12.7 | <15.0 % | [facility] | | | | | | [facility] | | | | [facility] | | + + + + + + | RDW-SD | 44.3 | 35.1 - 46.3 fL | [facility] | | | | | | [facility] | | [facility] | | + + + + + + | Platelet | 229 | 140 - 440 K/uL | [facility] | | | Count | | | [facility] | | [facility] | | + + + + + + | MPV | 10.8 | 6.5 - 12.4 fL | [facility] | | | | | | [facility] | | | | [facility] | | + + + + + + | % | 75.7 | 45.0 - 82.0 % | [facility] | | | Neutrophils | | | [facility] | [facility] | | [facility] | [facility] | | | [facility] | | + + + + + + | % | 14.7 (L) | 20.0 - 45.0 % | [facility] | | | Lymphocytes | | | [facility] | [facility] | | | | | [facility] | | | | | [facility] | | + + + + + + | % Monocytes | 9.0 | 4.0 - 12.0 % | [facility] | | | | | | [facility] | | | | [facility] | | | | [facility] | | + + + + + + | % | 0.4 | 0.0 - 5.0 % | [facility] | | | Eosinophils | | | [facility] | | | [facility] | | | | | [facility] | | | | [facility] | | + + + + + + | % Basophils | 0.1 | 0.0 - 1.0 % | [facility] | | | | | | [facility] | [facility] | | | | [facility] | | | | [facility] | | + + + + + + | % Immature | 0.1 | 0.0 - 0.4 % | [facility] | | | Granulocyte | | | [facility] | | | s | | | [facility] | | | | | | [facility] | | | | | | [facility] | | + + + + + + | Absolute | 10.31 (H) | 1.80 - 8.50 | [facility] | | | Neutrophils | | K/uL | [facility] | [facility] | | | | [facility] | | | | | [facility] | | + + + + + + | Absolute | 2.00 | 0.60 - 3.20 | [facility] | | | Lymphocytes | | K/uL | [facility] | | | | | [facility] | | | | | | [facility] | | | | | | [facility] | | + + + + + + | Absolute | 1.23 (H) | 0.00 - 1.00 | [facility] | | | Monocytes | | K/uL | [facility] | [facility] | | | | | | [facility] | | | | | [facility] | | + + + + + + | Absolute | 0.06 | 0.00 - 0.40 | [facility] | | | Eosinophils | | K/uL | [facility] | [facility] | | | | | | [facility] | | | | | [facility] | | + + + + + + | Absolute | 0.02 | 0.00 - 0.10 | [facility] | | | Basophils | | K/uL | [facility] | | | | | [facility] | | | | | | [facility] | | | | | | [facility] | | + + + + + + | Absolute | 0.02 | 0.00 - 0.03 | [facility] | | | Immature | | K/uL | [facility] | | | [facility] | | | [facility] | | | s | | | [facility] | | | | | | [facility] | | + + + + + + + + | Specimen | + + | Blood | + + + + + + + | Performing | Address | City/State/Zipcode | Phone Number | | Organization | | | | + + + + + | [facility] | [address] | [place] | [phone] | | [facility] | | [address] | | | [facility] | | | | + + + + + Comprehensive Metabolic Panel (01/13/2019 9:35 AM PST) + + + + + + | Component | Value | Ref Range | Performed | Pathologist | | | | | At | Signature | + + + + + + | Na | 137 | 136 - 145 | [facility] | | | | | mmol/L | [facility] | | | | | [facility] | | | | | [facility] | [facility] | | + + + + + + | K | 4.1 | 3.5 - 5.1 | [facility] | | | | | mmol/L | [facility] | | [facility] | | [facility] | | [facility] | | | | | [facility] | | + + + + + + | Cl | 102 | 98 - 107 mmol/L | [facility] | | | | | | [facility] | | | | [facility] | | | | [facility] | | + + + + + + | CO2 | 27 | 21 - 32 mmol/L | [facility] | | | | | | [facility] | | | | [facility] | | [facility] | | + + + + + + | Anion Gap | 8 | 2 - 16 mmol/L | [facility] | | | | | | [facility] | [facility] | | | | | [facility] | | | | | [facility] | | + + + + + + | Glucose | 103 | 74 - 106 mg/dL | [facility] | | | | | | [facility] | | | | [facility] | | | | | [facility] | | + + + + + + | BUN | 12 | 7 - 18 mg/dL | [facility] | | | | | | [facility] | [facility] | | | | | [facility] | | | | | [facility] | | + + + + + + | Creatinine | 0.95 | 0.70 - 1.30 | [facility] | | | | | mg/dL | [facility] | | | | | | [facility] | | | | | | [facility] | | + + + + + + | eGFR if not | >60Comment: GLOMERULAR | >=60 | [facility] | | | | FILTRATION | mL/min/1.73m2 | [facility] | | | NAMIBIAN | RATE,ESTIMATED | | MEDICAL | | | | mL/min/1.49q9Kxww than | | [facility] | | | | 60 Chronic kidney | | LABORATORY | | | | disease,if found over a | | | | | | 3-month period.Less than | | | | | | 15 Kidney failureFor | | | | | | | | | | | | Americans,multiply the | | | | | | calculated GFR by 1.21. | | | | | | | | | | + + + + + + | Calcium | 9.2 | 8.5 - 10.1 | [facility] | | | | | mg/dL | [facility] | | | | | [facility] | | | | | | [facility] | | | | | [facility] | | + + + + + + | Albumin | 4.0 | 3.4 - 5.0 g/dL | [facility] | | | | | | [facility] | | | | | | [facility] | | | | | | [facility] | | | | | | [facility] | | + + + + + + | Bilirubin | 1.0 | 0.2 - 1.0 mg/dL | [facility] | | | Total | | | [facility] | | | | | [facility] | | | | | | [facility] | | | | | | [facility] | | + + + + + + | Total | 7.9 | 6.4 - 8.2 g/dL | [facility] | | | Protein | | | [facility] | | | | | [facility] | | | | | | [facility] | | | | | | [facility] | | + + + + + + | AST | 12 (L) | 15 - 37 U/L | [facility] | | | | | | [facility] | [facility] | [facility] | | | | | | [facility] | | | | | | [facility] | | + + + + + + | ALT | 40 | 16 - 63 U/L | [facility] | | | | | | [facility] | | | | | [facility] | | | | | | [facility] | | | | | | [facility] | | + + + + + + | Alkaline | 65 | 46 - 116 U/L | [facility] | | | Phosphatase | | | [facility] | | | | | [facility] | | | | | | [facility] | | | | | | [facility] | | + + + + + + | Globulin | 3.9 (H) | 2.1 - 3.8 g/dL | [facility] | | | | | | [facility] | | | | | [facility] | | | | | | [facility] | | | | | | [facility] | | + + + + + + | Albumin/Nubia | 1.0 | 0.8 - 2.0 | [facility] | | | bulin Ratio | | | [facility] | | | | | [facility] | | | | | | [facility] | | | | | | [facility] | | + + + + + + | BUN/Creatin | 12.6 | | [facility] | | | ine Ratio | | | [facility] | | | | | [facility] | | | | | | [facility] | | | | | | [facility] | | + + + + + + + + | Specimen | + + | Blood | + + + + + + + | Performing | Address | City/State/Zipcode | Phone Number | | Organization | | | | + + + + + | [facility] | [address] | [place] | [phone] | | [facility] | | [address] | | | [facility] | | | | + + + + + Lipase (01/13/2019 9:35 AM PST) + +-------+ + + + | Component | Value | Ref Range | Performed | Pathologist | | | | | At | Signature | + +-------+ + + + | Lipase | 102 | 73 - 393 U/L | [facility] | | | | | | [facility] | | [facility] | | | | | | [facility] | | | | | | [facility] | | + +-------+ + + + + + | Specimen | + + | Blood | + + + + + + + | Performing | Address | City/State/Zipcode | Phone Number | | Organization | | | | + + + + + | [facility] | [address] | [place] | [phone] | | [facility] | | [address] | | | [facility] | | | | + + + + + Urinalysis, Microscopic Only, with Culture if Indicated (01/13/2019 9:31 AM PST) + + + + + + | Component | Value | Ref Range | Performed | Pathologist | | | | | At | Signature | + + + + + + | White Blood | 0-2 | 0 - 2 /HPF | [facility] | | | Cells, | | | [facility] | | | U[facility] | | | [facility] | | | | | | [facility] | | | | | | [facility] | | + + + + + + | Red Blood | 2-5 (A) | 0 - 2 /HPF | [facility] | | | Cells, | | | [facility] | | | Urine | | | [facility] | | | | | | [facility] | | | | | | [facility] | | + + + + + + | Squamous | 0-2 | 0 - 2 /LPF | [facility] | | | Epithelial | | | [facility] | | | Cells, | | | [facility]ICAL | | | Urine | | | [facility]ARK | | | | | | LAB[facility]ATORY | | + + + + + + | Bacteria, | Negative | Negative /HPF | [facility] | | | Urine | | | [facility] | | | | | | [facility] | | | | | | [facility] | | | | | | [facility] | | + + + + + + | Urine | Urine Culture Not | | [facility] | | | Comment | Indicated | | [facility] | | | | | | [facility] | | | | | | [facility] | | | | | | [facility] | | + + + + + + + + | Specimen | + + | Urine - Urine | | specimen obtained by | | clean catch | | procedure (specimen) | + + + + + + + | Performing | Address | City/State/Zipcode | Phone Number | | Organization | | | | + + + + + | [facility] | [address] | [place] | [phone] | | [facility] | | [address] | | | [facility] | | | | + + + + + POCT Urinalysis (01/13/2019 9:30 AM PST) + + + + + + | Component | Value | Ref Range | Performed | Pathologist | | | | | At | Signature | + + + + + + | Color, UA, | Dark Yellow (A) | Yellow, Light | | | | POC | | Yellow | | | + + + + + + | Clarity, | Clear | | | | | UA, POC | | | | | + + + + + + | Glucose, | Negative | Negative | | | | UA, POC | | | | | + + + + + + | Bilirubin, | Negative | Negative | | | | UA, POC | | | | | + + + + + + | Ketones, | Negative | Negative, 100 | | | | UA, POC | | mg/dL | | | + + + + + + | Specific | 1.020 | 1.001 - 1.030 | | | | Bruce, | | | | | | UA, POC | | | | | + + + + + + | Blood, UA, | Trace Intact (A) | Negative | | | | POC | | | | | + + + + + + | pH, UA, POC | 7.0 | 5.0, 6.0, 7.0, | | | | | | 8.0, 5.5, 6.5, | | | | | | 7.5 | | | + + + + + + | Protein, | Trace (A) | Negative | | | | UA, POC | | | | | + + + + + + | Urobilinoge | 0.2 | 0.2, Negative, | | | | n, UA, POC | | Normal, < 0.2 | | | | | | mg/dL, 1 mg/dL, | | | | | | < 0.2 E.U./dl, | | | | | | 1.0 E.U./dL, | | | | | | 0.2 mg/dL | | | + + + + + + | Nitrite, | Negative | Negative | | | | UA, POC | | | | | + + + + + + | Leukocyte | Negative | Negative | | | | Esterase, | | | | | | UA, POC | | | | | + + + + + + | Reducing | | | | | | Substances, | | | | | | Urine | | | | | + + + + + + | Bilirubin | | | | | | Confirmatio | | | | | | n by | | | | | | Ictotest, | | | | | | Urine | | | | | + + + + + + | Remark | | | | | + + + + + + + + | Specimen | + + | Urine | + + documented in this encounter Visit Diagnoses + + | Diagnosis | + + | Acute left flank pain - Primary Abdominal pain, unspecified site | + + | Microscopic hematuria | + + | Diverticulitis large intestine w/o perforation or abscess w/bleeding Diverticulitis | | of colon with hemorrhage | + + | Liver lesion Other specified disorders of liver | + + documented in this encounter"
--- OUTSIDE RECORDS SUMMARY | ~2019-07-29 | XMS | Encounter Summary ---
Demographics + + + | Address | [address] | | | [place] [address] | + + + | Home Phone | | + + + | Preferred Language | Unknown | + + + | Marital Status | | + + + | Yarsanism Affiliation | Unknown | + + + | Race | Unknown | + + + | Ethnic Group | Unknown | + + + Author + + + | Author | [facility] | | | and [place] | + + + | Organization | [facility] | | | and [place] [...] Team Providers + +------+ + | Care Environmental Program Manager Name | Role | Phone | + +------+ + | Sheri Woodard MD | PCP | | + +------+ + Reason for Visit +--------+ + | Reason | Comments | +--------+ + | Other | | +--------+ + Encounter Details +--------+ + + + + | Date | Type | Department | Care Team | Description | +--------+ + + + + | 05/30/ | Telephone | [facility] | [facility] | Other | | 2020 | | UROLOGY [address] | [address] | | | | | [address] | | | | | | [facility] [place] | | | | | | [address] | | | | | | [phone] | | | +--------+ + + + [...] [address] | | | | | | [place] [address] | | | | | | [phone] | | | | | | | | +--------+ + + + + documented as of this encounter Visit Diagnoses Not on filedocumented in this encounter"
--- OUTSIDE RECORDS SUMMARY | ~2019-07-29 | XMS | Encounter Summary ---
Demographics + + + | Address | [address] | | | [place] [address] | + + + | Home Phone | | + + + | Preferred Language | Unknown | + + + | Marital Status | | + + + | Mormon Affiliation | Unknown | + + + | Race | Unknown | + + + | Ethnic Group | Unknown | + + + Author + + + | Author | [facility] | | | and [place] | + + + | Organization | [facility] | | | and [place] [...] Team Providers + +------+ + | Care Real Estate Intern Name | Role | Phone | + +------+ + | No, Physician | PCP | Unavailable | + +------+ + Reason for Visit + + + | Reason | Comments | + + + | Follow-up | | + + + Encounter Details +--------+ + + + + | Date | Type | Department | Care Team | Description | +--------+ + + + + | 02/17/ | Telephone | [facility] | [place], | Follow-up | | 2019 | | CARE [address] | Bjorn Cohen MD | | | | | [place] | [address] | | | | | [address] | [place] | | | | | [phone] | [address] | | | | | | | [...] | | | | | [place] [address] | | | | | | [phone] | | | | | | | | +--------+ + + + + documented as of this encounter Visit Diagnoses Not on filedocumented in this encounter"
[~2019-07-29 15:33] MED LIST: ASPIRIN EC81 MG PO; CIALIS20 MG PO; MELOXICAM7.5 MG PO; PERCOCET 7.5-31 EACH PO; RAMIPRIL2.5 MG PO
[2019-07-29] MEDS ORDERED: LEVOTHYROXINE175 MCG PO (15:44)
[2019-07-29] MEDS ORDERED: ZOFRAN4 MG PO (17:50)
--- NOTE | 2019-07-30 12:09 | EKG ---
[facility] [address] [place], [place] [address] Signed Normal sinus rhythm Normal ECG Confirmed by TITUS HAMPTON MD ([id number]) on 07/30/2019 12:09:35 PM Electronically Signed By: TITUS HAMPTON MD 07/30/19 1209 PATIENT NAME: BOOGIEJODY L Electrocardiogram DATE OF : 61 PHYSICIAN: TITUS HAMPTON MD REPORT #: [id number] REPORT IS CONFIDENTIAL AND NOT TO BE RELEASED WITHOUT AUTHORIZATION
== END 2019-07-29 18:19 | disposition home or self-care (01) ==
LOC: ED 15:33
DX: R55 Syncope and collapse (principal); R19.7 Diarrhea, unspecified; R11.0 Nausea; E78.00 Pure hypercholesterolemia, unspecified; Z20.828 Contact with and (suspected) exposure to other viral communicable diseases; Z87.891 Personal history of nicotine dependence; Z79.899 Other long term (current) drug therapy
CPT/HCPCS: 71045; 80053; 83735; 84484; 85025; 93005; 93010; 96374; 99284-25; C9803; J2405; U0002

== ENCOUNTER 2023-01-08 05:50 | Day surgery (SDC) | payer OTHER ==
[2022-12-31 08:31] VITALS: BP 147/91
[~2023-01-08] VITALS: Ht 180.3 cm; Wt 110.0 kg
[~2023-01-08 05:50] MED LIST changes: +ARTHRITIS PAIN150 GM; +LEVOTHYROXINE175 MCG PO; +MAGNESIUM100 MG PO; +VITAMIN C1000 MG PO; +VITAMIN D325 MCG PO; +ZINC10 MG PO; +ZOFRAN4 MG PO
[2023-01-08 06:05] VITALS: BP 144/93
--- NOTE | 2023-01-08 09:15 | NUR ---
01/08/23 0915 Sandrita Meade 0905-PT ARRIVES AWAKE TO PACU ON 6 L VIA MASK. PT TURNED DOWN TO ROOM AIR AND TOLERATES. PT DENIES PAIN/NAUSEA. VSS. 0915-PT CONTINUES TO TALK AND DENY PAIN/NAUSEA. ON ROOM AIR.
[2023-01-08] MEDS ORDERED: IBUPROFEN600 MG PO (09:24)
[2023-01-08] MEDS ORDERED: OXYCODON-ACETA1 EAC2 PO (09:24)
[2023-01-08] MEDS ORDERED: ACETAMINOPHEN500 MG PO (09:25)
[2023-01-08 09:33] VITALS: BP 120/69
[2023-01-08 10:24] VITALS: BP 146/80
--- NOTE | 2023-01-08 13:40 | NUR ---
LE 0933-PATIENT BACK TO ROOM FROM PACU ON . RECEIVED REPORT FROM ALO RUIZ. PATIENT IS AWAKE. RESP EVEN AND UNLABAORED. DENIES NAUSEA. DRESSING HAS A SMALL AMOUNT OF RED DRAINAGE. PATIENT EATING ICE CHIPS. PROVIDED PATIENT WITH CRACKERS AND APPLESAUCE. CALL LIGHT WITHIN REACH.
--- NOTE | 2023-01-08 13:59 | NUR ---
LE 1000-PATIENT UP TO RESTROOM. GAIT STEADY AND TOLERATED WELL. PATIENT VOIDED 200ML.
--- NOTE | 2023-01-08 14:02 | NUR ---
LE 1015-PATIENT WOULD LIKE TO GET DRESSED. STATES WILL BE HERE SOON.
--- NOTE | 2023-01-08 14:04 | NUR ---
LE 1024-PATIENT IS DRESSED SITTING ON THE SIDE OF THE BED. RESP EVEN AND UNLABORED. RATES PAIN 1/10. DENIES NAUSEA. DRESSING HAS A SMALL AMOUNT OF RED DRAINAGE. IN ROOM.
--- NOTE | 2023-01-08 14:12 | NUR ---
AYO 1030-WENT OVER DISCHAGE INSTRUCTIONS WITH PATIENT AND HIS . ALL QUESTIONS ANSWRED. MICHAEL AMBULATES TO WHEELCHAIR AND RIDE PROVIDED TO FRONT OF HOPSITAL WHERE RIDE WAS WAITING.
--- NOTE | 2023-01-10 15:34 | OR ---
[facility] [address] [place], [place] [address] Signed DATE OF OPERATION: 01/08/2023 SURGEON: Aliyah Vincent MD PREOPERATIVE DIAGNOSIS: Right inguinal hernia. POSTOPERATIVE DIAGNOSES: 1. Large right indirect inguinal hernia with sliding component (bladder fat). 2. Cord lipoma. PROCEDURES: 1. Repair of right indirect inguinal hernia, sliding type with implantation of Prolene mesh underlay technique. 2. Excision of cord lipoma. ANESTHESIA: General LMA, Aliyah Eddy CRNA and local 10 mL of 0.25% Marcaine with epinephrine. INDICATION: This 57-year-old white man who is moderately obese and has developed a right inguinal hernia. I have repaired an umbilical and left inguinal hernia on him in the past. He is admitted at this time to undergo repair of the hernia. He understands the risk of bleeding, infection, and recurrence. FINDINGS: He had a fair amount of abdominal wall fat. The hernia itself was quite bulky, indeed. Making up the bulk of the hernia was an indirect sliding component of bladder fat. Additionally, he had a cord lipoma. Excision of the cord lipoma was accomplished and reduction of the sliding component of the hernia undertaken with closure of the hernia sac, amputation of redundant hernia sac and implantation of Prolene mesh in an underlay technique. PROCEDURE IN DETAIL: The patient was brought to the operating room, given a general LMA type anesthetic. Preoperative antibiotic of Ancef was given. Sequential compression device stockings were used. Heparin was subcutaneously administered. The lower abdomen was clipped and prepared with chlorhexidine solution and draped sterilely. An incision was made cephalad to the pubic tubercle on the right side. Incision and was taken through the subcutaneous space with electrocautery. The external oblique was completely attenuated Electronically Signed By: ALIYAH VINCENT MD 01/10/23 1534 PATIENT NAME: JODY HYMAN OPERATIVE REPORT DATE OF : 61 REPORT #: [id number] PHYSICIAN: ALIYAH VINCENT MD PCP: SHERI WOODARD MD REPORT IS CONFIDENTIAL AND NOT TO BE RELEASED WITHOUT AUTHORIZATION [facility] [address] [place], [place] [address] Signed and allowing for a very bulky hernia to be noted. Minimal excision of the external oblique laterally was undertaken though of no real benefit as the external oblique was completely . Using blunt dissection, the bulky hernia and cord was mobilized from the floor and encircled with a Migel drain. Circumferential excision of the cremasteric muscle fibers around the cord was undertaken revealing the underlying cord structures more fully. There was a lipoma of the cord which was dissected free and excised with its vascular base secured with 2-0 silk tie. The hernia sac was then from the cord more fully. The hernia sac remained quite bulky and although there was no hollow viscus within it. Once it was opened, it was clear that there was bulky fat from the bladder. This fat was dissected free from the hernia sac as much as possible. We reflected back into the peritoneal cavity leaving the hernia sac remnant. The hernia sac was oversewn with a running mattress suture of 2-0 silk. Ultimately excising the redundant hernia sac and additionally securing the neck of the hernia sac. The Allis clamp applied to the tendon of the transversus abdominis. There was attenuation of the floor of the canal. This was incised with electrocautery and the properitoneal space was bluntly developed. A segment of Prolene mesh was secured in an underlay technique with interrupted 2-0 Prolene suture. The tails of the graft were carried around the cord with all due care taking great care to avoid encumbrance of the ilioinguinal nerve. The repair was circumferentially around the cord but not excessively tight on the cord itself. Irrigation was undertaken. There was no external oblique to speak of to close and therefore Romero layer was reapproximated with interrupted 2-0 Vicryl. The skin was closed with running subcuticular 3-0 Vicryl after application of 10 mL of 0.25% Marcaine with epinephrine. Steri-Strips were applied as was an Acticoat dressing. The patient was ultimately extubated and transferred to the recovery room in good condition having suffered no complication. Sponge, needle, and instrument counts were reported as correct x3. MD CATHY Pineda/MODL /[id number] cc: Sheri Woodard MD Electronically Signed By: ALIYAH VINCENT MD 01/10/23 1534 PATIENT NAME: JODY HYMAN OPERATIVE REPORT DATE OF : 61 REPORT #: [id number] PHYSICIAN: ALIYAH VINCENT MD PCP: SHERI WOODARD MD REPORT IS CONFIDENTIAL AND NOT TO BE RELEASED WITHOUT AUTHORIZATION [address] [address] Signed Copies: ~ Electronically Signed By: ALIYAH VINCENT MD 01/10/23 1534 PATIENT NAME: JODY HYMAN Irena OPERATIVE REPORT DATE OF : 61 REPORT #: [id number] PHYSICIAN: ALIYAH VINCETN MD PCP: SHERI WOODARD MD REPORT IS CONFIDENTIAL AND NOT TO BE RELEASED WITHOUT AUTHORIZATION
--- NOTE | 2023-01-12 15:55 | PATH ---
[facility] [address] [place], [place] [address] Signed SPECIMEN(S): A LIPOMA OF CORD SPECIMEN(S): B RIGHT INDIRECT HERNIA SAC SPECIMEN SOURCE: A. LIPOMA OF CORD B. RIGHT INDIRECT HERNIA SAC CLINICAL HISTORY: Right inguinal hernia repair FINAL PATHOLOGIC DIAGNOSIS: A. Lipoma of cord: - Benign lobulated adipose tissue and vasculature consistent with angiolipoma. B. Right indirect hernia sac: - Benign fibromembranous soft tissue with adipose and vasculature, consistent with clinical hernia sac. JVR:makayla MICROSCOPIC EXAMINATION: Histologic sections of all submitted blocks are examined by light microscopy. These findings, together with the gross examination, support the pathologic diagnosis. GROSS DESCRIPTION: A. The specimen, labeled and designated "Jamison, R, " and designated on the requisition "lipoma of cord," is received in formalin and consists of a 4.5 x 2.0 x 1.4 cm pink membranous sac-like structure with attached yellow-gibson multilobulated adipose tissue. No mass lesions are grossly identified. Rim Turning Machine Operator sections are submitted in (A1). B. The specimen, labeled and designated "Jamison, R, " and designated on the requisition "right indirect hernia sac," is received in formalin and consists of a 6.6 x 2.0 x 0.9 cm membranous sac-like structure with attached yellow-gibson adipose tissue. Upon sectioning no mass lesions are grossly identified. Rim Turning Machine Operator sections are submitted in (B1). FB (under the direct supervision of a pathologist) The Gross Description was prepared using a voice recognition system. The report was reviewed for accuracy; however, sound-alike word errors, addition and/or deletions may occur. If there is any question about this report, please contact Client Services. PATIENT NAME: JODY HYMAN PATHOLOGY DATE OF : 61 REPORT #: [id number] PHYSICIAN: ANNA MARIE PATHOLOGY PCP: ESDRAS CA MD REPORT IS CONFIDENTIAL AND NOT TO BE RELEASED WITHOUT AUTHORIZATION [facility] [address] [facility] [place], [place] [address] Signed PERFORMING LABORATORY: Technical component was performed by [facility], [address] [place] [address] (CLIA# [id number]). Professional interpretation was performed by [facility], [address] [place] [id number] (CLIA#: [id number]). Diagnostician: Yash Aguila MD Pathologist Electronically Signed 01/12/2023 Copies: ~ PATIENT NAME: JODY HYMAN PATHOLOGY DATE OF : 61 REPORT #: [id number] PHYSICIAN: ANNA MARIE PATHOLOGY PCP: ESDRAS CA MD REPORT IS CONFIDENTIAL AND NOT TO BE RELEASED WITHOUT AUTHORIZATION
== END 2023-01-08 10:30 | disposition home or self-care (01) ==
LOC: DS 05:50
PROVIDERS: ATTEND Surgery
PROC: 0YU50JZ Supplement Right Inguinal Region with Synthetic Substitute, Open Approach (ICD-10-PCS; principal; 2023-01-08 07:30)
DX: K40.90 Unilateral inguinal hernia, without obstruction or gangrene, not specified as recurrent (principal); N40.0 Benign prostatic hyperplasia without lower urinary tract symptoms; K57.30 Diverticulosis of large intestine without perforation or abscess without bleeding; Z80.0 Family history of malignant neoplasm of digestive organs; I10 Essential (primary) hypertension; E03.9 Hypothyroidism, unspecified; D17.6 Benign lipomatous neoplasm of spermatic cord
CPT/HCPCS: 00830; C1781; J0690; J1100; J1644; J1885; J2250; J2371; J2405; J2704; J2765; J3010; J7121